=== PATIENT | male | born 1985 | race Two or more races ===

== ENCOUNTER 2017-03-01 09:14 | Emergency (ER) | payer MEDICAID ==
[~2017-03-01] VITALS: Ht 190.5 cm; Wt 95.3 kg
[~2017-03-01 09:14] MED LIST: DILAUDID2 MG ORAL
[2017-03-01] MEDS ORDERED: GABAPENTIN400 MG ORAL (09:27)
[2017-03-01] MEDS ORDERED: NORCO 5-325 TA1 EACH ORAL (10:12)
[2017-03-01] MEDS ORDERED: Norco 5mg/325mg tab ORAL ONE (10:15)
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
[2017-03-01 10:44] VITALS: BP 124/78
== END 2017-03-01 10:45 | disposition home or self-care (01) ==
LOC: EMR 09:30
DX: K08.89 Other specified disorders of teeth and supporting structures (principal); J45.909 Unspecified asthma, uncomplicated
CPT/HCPCS: 99283